=== PATIENT | female | born 1950 | race Caucasian/White ===

== ENCOUNTER 2025-05-23 10:26 | Outpatient (CLI) | payer MEDICARE ==
[2025-05-23 11:54] LABS: Estimated GFR - POC 78.0
== END 2025-05-23 10:27 | disposition home or self-care (01) ==
LOC: SCSMRI 10:26
PROVIDERS: ATTEND Orthopaedic Surgery
DX: R22.42 Localized swelling, mass and lump, left lower limb (principal); S83.242A Other tear of medial meniscus, current injury, left knee, initial encounter; M22.42 Chondromalacia patellae, left knee
CPT/HCPCS: 36415; 82565